=== PATIENT | male | born 1955 | race Caucasian/White ===

== ENCOUNTER 2018-09-02 18:20 | Emergency (ER) | payer MEDICARE, BC ==
[~2018-09-02] VITALS: Ht 172.7 cm; Wt 105.5 kg
[~2018-09-02 18:20] MED LIST: INSULIN; MTF1000T
[2018-09-02 18:23] VITALS: Ht 172.7 cm; Wt 105.5 kg
--- NOTE | 2018-09-02 19:37 | ERD ---
ER Documentation Chief Complaint Chief Complaint c/o dizziness HPI The patient is a 63-year-old male, presenting to the ER because of dizziness, he had history of chronic dizziness, planes of vertigo, denies blurred vision, syncope, near syncope, neck pain, chest pain, dyspnea, abdominal pain, vomiting, dysuria, diarrhea, complains of chronic low back pain, denies fecal/urinary incontinence. He does not smoke nor drink, denies any history of IV drug abuse Medical history: Diabetes mellitus, chronic low back pain, chronic dizziness, hypertension, diabetic neuropathy, dyslipidemia Past surgical history: None ROS All systems reviewed and are negative except as per history of present illness. Medications Home Meds Active Scripts Ibuprofen* (Motrin*) 600 Mg Tab, 600 MG PO Q6H PRN for PAIN AND OR ELEVATED TEMP, #20 TAB Prov:KARINE MORA MD 09/02/18 Hydrocodone/Acetaminophen (Hutchinson 10-325 Tablet) 1 Each Tablet, 1 TAB PO Q6H PRN for PAIN, #7 TAB Prov:KARINE MORA MD 09/02/18 Meclizine Hcl* (Antivert*) 12.5 Mg Tab, 25 MG PO Q6H PRN for DIZZINESS, #20 TAB Prov:KARINE MORA MD 09/02/18 Reported Medications Metformin* (Glucophage*) 1,000 Mg Tablet 06/19/09 [Insulin] No Conflict Check 04/27/09 Allergies Allergies: Coded Allergies: No Known Drug Allergies (Verified Allergy, Mild, 06/19/09) PMhx/Soc History of Surgery: No Hx Neurological Disorder: No Hx Respiratory Disorders: No Hx Cardiac Disorders: No Hx Miscellaneous Medical Probl: No Hx Alcohol Use: No Hx Substance Use: No Hx Tobacco Use: No Physical Exam Vitals Vital Signs Date Temp Pulse Resp B/P (MAP) Pulse Ox O2 O2 Flow FiO2 Time Delivery Rate 09/02/18 65 19 136/73 98 Room Air 22:50 (94) 09/02/18 64 18 129/62 97 Room Air 21:32 (84) 09/02/18 98.6 71 18 136/64 97 18:23 (88) Physical Exam Const: No acute distress. Head: Atraumatic. Eyes: Normal Conjunctiva. ENT: Normal External Ears, Nose and Mouth. Neck: Full range of motion. No meningismus. Resp: Clear to auscultation bilaterally. Cardio: Regular rate and rhythm. Abd: Soft, non distended, normal bowel sounds, non tender. Skin: No petechiae or rashes. Back: No midline or flank tenderness. Ext: No cyanosis, or edema. Neur: Awake and alert. No focal deficit Psych: Normal Mood and Affect. Result Diagram: 09/02/18200209/02/182002 Results 24 hrs Laboratory Tests Test 09/02/18 18:26 09/02/18 20:03 09/02/18 20:05 09/02/18 20:13 Bedside Glucose 271 mg/dL 232 mg/dL White Blood Count 9.4 10^3/ul Red Blood Count 4.90 10^6/ul Hemoglobin 14.1 g/dl Hematocrit 42.7 % Mean Corpuscular 87.1 fl Volume Mean Corpuscular 28.8 pg Hemoglobin Mean Corpuscular 33.0 g/dl Hemoglobin Concent Red Cell 12.7 % Distribution Width Platelet Count 259 10^3/UL Mean Platelet 8.9 fl Volume Immature 0.300 % Granulocytes % Neutrophils % 61.9 % Lymphocytes % 27.4 % Monocytes % 9.0 % Eosinophils % 1.1 % Basophils % 0.3 % Nucleated Red Blood 0.0 /100WBC Cells % Immature 0.030 10^3/ul Granulocytes # Neutrophils # 5.8 10^3/ul Lymphocytes # 2.6 10^3/ul Monocytes # 0.8 10^3/ul Eosinophils # 0.1 10^3/ul Basophils # 0.0 10^3/ul Nucleated Red Blood 0.0 10^3/ul Cells # Sodium Level 139 mmol/L Potassium Level 4.7 mmol/L Chloride Level 102 mmol/L Carbon Dioxide 28 mmol/L Level Anion Gap 9 Blood Urea Nitrogen 25 mg/dl Creatinine 0.94 mg/dl Est Glomerular > 60 mL/min Filtrat Rate mL/min Glucose Level 238 mg/dl Calcium Level 9.6 mg/dl Troponin I < 0.012 ng/ml Bedside Urine pH 5.0 (LAB) Bedside Urine Trace Protein (LAB) Bedside Urine 0.1% Glucose (UA) Bedside Urine Trace Ketones (LAB) Bedside Urine Blood Negative Bedside Urine Negative Nitrite (LAB) Bedside Urine Negative Leukocyte Esterase (L Current Medications Medications Dose Sig/Maribel Start Time Status Last (Trade) Ordered Route PRN Stop Time Admin Dose Reason Admin Meclizine 25 mg ONCE ONCE 09/02/18 DC 09/02/18 HCl PO 20:00 20:18 (Antivert) 09/02/18 20:01 1 tab ONCE ONCE 09/02/18 DC 09/02/18 Acetaminophen PO 23:00 22:48 / 09/02/18 23:00 Hydrocodone Bitart (Hutchinson ()) Procedures/[place] [id number] Radiology Main Line: [phone] DIAGNOSTIC IMAGING REPORT Patient: EDUARDO CARRASQUILLO : 1955 Age: 63 Sex: M MR #: [id number] DOS: 09/02/181952 Ordering MD: KARINE MORA MD Location: E/R Room/Bed: PROCEDURE: CT Brain without contrast. CLINICAL INDICATION: Dizziness. TECHNIQUE: A CT of the brain was performed on a [employer] CT scanner util izing axial imaging from the skull base through the vertex without IV contrast. Multiplanar reformatted images were made. Images were reviewed on a PACS workstation. The CTDIvol is 36.2 mGy and the DLP is 634.2 mGycm. DICOM images are available. One or more of the following dose reduction techniques were utilized: 1.) Automated exposure control 2.) Adjustment of the mA +/- kV according to patient's size 3.) Use of iterative reconstruction technique. COMPARISON: No prior brain studies available for comparison in the PACS at time of image interpretation. FINDINGS: No acute intracranial hemorrhage, extra-axial fluid collection, mass effect nor midline shift. No evidence of acute large territory transcortical infarct. scattered hypoattenuating foci involving the periventricular, deep and subcortical white matter of bilateral cerebral hemispheres and the yarelis, nonspecific but most likely reflecting chronic small vessel ischemia mildly advanced for age. Ventricles and sulci are mildly prominent for age, likely reflecting central atrophy. No transependymal edema. Basal cisterns are patent and symmetric. Intracranial atherosclerotic calcifications. Visualized paranasal sinuses and mastoid air cells are essentially clear. Slight s-shaped nasal septal deviation with rightward spurring and bilateral erika bullosa. Left lens replacement. No retrobulbar hematoma. No depressed calvarial fracture. IMPRESSION: 1. No acute intracranial hemorrhage nor mass effect. 2. Mild presumed chronic small vessel ischemic changes and central atrophy. MRI brain has improved sensitivity for acute infarct or subtle lesion. RPTAT: HSAN Sosa Sagastume Physician Date Time Electronically viewed and signed by Sosa Sagastume Physician on 09/02/2018 22:08 xN/ CC: KARINE MORA MD [phone] EKG: Read by emergency physician Rate/Rhythm: Normal Sinus Rhythm 68 beats/min QRS, ST, T-waves: No ST elevation, no T inversion, LAFB, LVH Impression: Abnormal EKG MEDICAL MAKING DECISION: The patient is a 73-year-old male, presenting with acute on chronic dizziness of unclear etiology, acute on chronic back pain of unclear etiology, treated with Antivert 25 mg p.o. for dizziness and Hutchinson 10 mg p.o. for back pain with good response, is stable for o/p follow-up The differential diagnoses for acute dizziness considered include but are not limited to central causes such as cerebellar infarct, cerebellar hemorrhage, cerebellar tumor, acoustic neuroma, peripheral causes such as benign positional vertigo, labyrinthitis, medication, Meniere's disease. The differential diagnoses for acute back pain considered include but are not limited to caudal equina syndrome, spinal abscess, DJD, diskitis, lumbar radiculopathy. Departure Diagnosis: Primary Impression: Dizziness Additional Impression: Back pain Condition: Good Comments He was discharged with Antivert and 7 tablets of Hutchinson 10 mg and Motrin I discussed the findings with the patient. I advised the patient to follow-up with the primary physician in about 1-2 days, sooner if needed and return if any concern. Disclaimer: Inadvertent spelling and grammatical errors are likely due to EHR/dictation software use and do not reflect on the overall quality of patient care. Also, please note that the electronic time recorded on this note does not necessarily reflect the actual time of the patient encounter. KARINE MORA MD Sep 02, 2018 19:37
[2018-09-02] MEDS ORDERED: MECLIZINE 12.5 MG TAB PO ONE (20:00)
[2018-09-02] MEDS ORDERED: MECL12.574 PO (22:39)
[2018-09-02] MEDS ORDERED: IBUP-1542 PO (22:40)
[2018-09-02] MEDS ORDERED: HYDR-3980 PO (22:40)
[2018-09-02 22:50] VITALS: BP 136/73; PULSE 65; RESP 19
[2018-09-02] MEDS ORDERED: HYDROCODONE/APAP (10/325) TAB PO ONE (23:00)
== END 2018-09-02 22:51 | disposition home or self-care (01) ==
LOC: E/R 18:20
DX: R42 Dizziness and giddiness (principal); E11.9 Type 2 diabetes mellitus without complications; I10 Essential (primary) hypertension; M54.5 Low back pain; Z79.84 Long term (current) use of oral hypoglycemic drugs
CPT/HCPCS: 70450; 80048; 81003; 82962; 84484; 85025; 93005